=== PATIENT | female | born 2000 | race Caucasian/White ===

== ENCOUNTER 2021-09-29 15:43 | Emergency (ER) | payer OTHER, SELFPAY ==
--- NOTE | ~2021-09-29 | XR_ITS ---
EXAMINATION: XR CHEST CLINICAL INFORMATION: Right chest wall pain COMPARISON: Previous chest and left rib x-ray February 2018 TECHNIQUE: 2 views of the chest were obtained. FINDINGS: No significant abnormality is noted involving the heart, lungs, mediastinum, bony thorax or soft tissues. XR/XR chest 2V IMPRESSION: Unremarkable examination.
[2021-09-29 16:06] VITALS: BP 112/76; PULSE 71; RESP 19; TEMP 36.6; O2SAT 99; BMI 26.2
--- NOTE | 2021-09-29 16:12 | ED.PSYCH ---
HPI - Psych General Chief Complaint: Psychiatric Symptoms Stated Complaint: Anxiety attack Source: patient Mode of arrival: ambulatory Limitations: no limitations History of Present Illness HPI Narrative: 21-year-old female presents with several months of depression and suicidal ideation. She does report intermittent right chest wall pain, feels like pain occurs that she needs to get up and stretch. It is not associated with diaphoresis, shortness breath, dizziness, lightheadedness, or any other concerning symptoms. She does not report any alcohol or drug use, trauma, assault or abuse. MD complaint: suicidal ideation, feels depressed and anxiety Onset (ago): month(s) Duration: constant History of same: No Relieving factors: none Associated psychiatric symptoms: depression, suicidal ideation and racing thoughts Associated symptoms: denies other symptoms Treatments prior to arrival: none If self harm: admits thoughts of self harm Related Data Allergies Allergy/AdvReac Type Severity Reaction Status Date / Time No Known Allergies Allergy Unverified 04/11/20 16:59 Review of Systems Review of Systems: Constitutional: No Fever, No Chills ENT/Mouth: No Ear Pain, No Nasal Congestion, No sore throat Eyes: No Eye Pain, No Swelling, No Redness Cardiovascular: Positive right Chest wall Pain, No SOB Respiratory: No Cough, No Sputum, No Dyspnea Gastrointestinal: No Nausea, No Vomiting, No Diarrhea, No Hematochezia, No Melena Genitourinary: No Dysuria, No Urinary Frequency, No Hematuria Musculoskeletal: No Myalgias Skin: No Skin Lesions, No rash Neuro: No Weakness, No Numbness, No Paresthesias, No Dizziness, No Headache Psych: positive Anxiety, positive Depression, positive SI Heme/Lymph: No Lymphadenopathy Endocrine: No Polyuria, No Polydipsia Yes all other systems are reviewed and are negative FOR[facility], [facility] Past Medical History Attestation statement: The following information was validated with the patient. Source: old records reviewed Social History Social History Advance Directives: No Advance Directives Information Provided: No Patient : No Physical Exam Vital Signs: Vital Signs: Last Vital Signs Temp 98 F 09/29/21 16:06 Pulse 71 09/29/21 16:06 Resp 19 09/29/21 16:06 BP 112/76 09/29/21 16:06 Pulse Ox 99 09/29/21 16:06 BMI result Body Mass Index 26.2 Appearance: Alert. Oriented X3. Moderate emotional distress, tearful. Eyes: Pupils equal, round and reactive to light. EOMI. Sclera nonicteric. ENT: Pharynx normal. Moist mucous membranes. Neck: Normal inspection. Neck supple. CVS: Normal heart rate and rhythm. Apical pulse equal pulses to extremities. No chest wall tenderness to palpation. Respiratory: No respiratory distress. Breath sounds normal. Abdomen: Soft and nontender. Skin: Skin warm and dry. Normal skin color. Normal skin turgor. Extremities: No lower extremity edema. Gait well-balanced well coordinated. Neuro: No motor deficit. No sensory deficit. Cranial nerves 2-12 intact. Course Course Course Narrative: 21-year-old female presents with complaints of suicidal ideation and depression. Has felt this way for several months, states that she feels that she is there for everybody else but no ins there for her. She is in school at this time, does not report using alcohol or illicit drugs, occasionally smokes marijuana. Does not have a primary care physician or an established psychiatrist. She does have vague suicidal ideations but states that she feels to be depressed carry through with a plan. For medical complaints, she describes as sharp stabbing intermittent right-sided chest wall pain. Not associated with any other symptoms. Denies fevers, chills, and illness. Will order basic labs, chest x-ray, COVID testing, crisis consult and consult to Psychiatry in order for her to establish care. 20:48 care team consult complete. Patient is on school break, there is a safety plan in place, patient has outpatient referrals, she is not interested inpatient or partial programs at this time. Not a qualified patient for inpatient care at this time. Patient verbalized understanding of and agrees to plan of care discharge home. Verbalized understanding of signs and symptoms indicating need for emergent intervention MDM - Psych Differential Diagnosis Differential diagnosis: Likely suicidal ideation, depression, acute anxiety and post-traumatic stress disorder Medical Records Attestation: I reviewed the patient's medical records. Lab Data Attestation: I reviewed the patient's lab results. Result diagrams: 09/29/21 17:40 09/29/21 17:40 Labs: Lab Results 09/29/21 09/29/21 09/29/21 Range/Units 16:23 17:30 17:30 WBC (4.8-10.8) X10*3/uL RBC (4.20-5.50) X10*6/uL Hgb (12.0-16.0) g/dl Hct (37.0-47.0) % MCV (80.0-98.0) fL MCH (27.0-33.0) pg MCHC (31.0-35.0) g/dl RDW (11.0-16.0) % Plt Count (160-400) X10*3/uL MPV (9.4-12.3) fL Immature Gran % (Auto) (0.0-0.4) % Neut % (Auto) (45-73) % Lymph % (Auto) (20-40) % [place] % (Auto) (2-11) % Eos % (Auto) (0-4) % Baso % (Auto) (0-2) % Lymph # (Auto) (1.2-4.9) X10*3/uL [place] # (Auto) (0.1-1.2) X10*3/uL Eos # (Auto) (0.0-0.4) X10*3/uL Baso # (Auto) (0.0-0.2) X10*3/uL Abs Immat Gran (auto) (0.00-0.03) X10*3/uL Absolute Neuts (auto) (2.0-8.3) x10*3/uL Absolute Nucleated RBC (0.0-0.012) X10*3/uL Nucleated RBC % (auto) (0.0-0.2) /100WBC Sodium (135-145) mmol/L Potassium (3.3-5.1) mmol/L Chloride (96-108) mmol/L Carbon Dioxide (22-29) mmol/L Anion Gap (12-20) BUN (9-16) mg/dL Creatinine (0.5-1.4) mg/dL Estim Creat Clear Calc Estimated GFR Random Glucose (60-115) mg/dL Calcium (8.4-10.2) mg/dL Total Bilirubin (0.0-1.0) mg/dL AST (5-31) U/L ALT (0-31) U/L Alkaline Phosphatase (39-117) U/L Total Protein (6.5-8.0) g/dL Albumin (3.5-5.0) g/dL Urine Test NEGATIVE (NEGATIVE) Urine Opiates Screen Not Detected (Not Detect) Urine Fentanyl Screen Not Detected (Not Detect) Ur Barbiturates Screen Not Detected (Not Detect) Ur Phencyclidine Scrn Not Detected (Not Detect) Ur Amphetamines Screen Not Detected (Not Detect) U Benzodiazepines Scrn Not Detected (Not Detect) Urine Cocaine Screen Not Detected (Not Detect) U Marijuana (THC) Screen POSITIVE H (Not Detect) Ethyl Alcohol mg/dL COVID-19 (VETO) Negative (Negative) COVID-19 Clin Com See Note 09/29/21 09/29/21 09/29/21 Range/Units 17:40 17:40 17:40 WBC 9.5 (4.8-10.8) X10*3/uL RBC 5.55 H (4.20-5.50) X10*6/uL Hgb 12.1 (12.0-16.0) g/dl Hct 38.8 (37.0-47.0) % MCV 69.9 L (80.0-98.0) fL MCH 21.8 L (27.0-33.0) pg MCHC 31.2 (31.0-35.0) g/dl RDW 14.5 (11.0-16.0) % Plt Count 387 (160-400) X10*3/uL MPV 9.9 (9.4-12.3) fL Immature Gran % (Auto) 0.4 (0.0-0.4) % Neut % (Auto) 68.3 (45-73) % Lymph % (Auto) 26.8 (20-40) % [place] % (Auto) 3.7 (2-11) % Eos % (Auto) 0.6 (0-4) % Baso % (Auto) 0.2 (0-2) % Lymph # (Auto) 2.5 (1.2-4.9) X10*3/uL [place] # (Auto) 0.4 (0.1-1.2) X10*3/uL Eos # (Auto) 0.1 (0.0-0.4) X10*3/uL Baso # (Auto) 0.0 (0.0-0.2) X10*3/uL Abs Immat Gran (auto) 0.04 H (0.00-0.03) X10*3/uL Absolute Neuts (auto) 6.5 (2.0-8.3) x10*3/uL Absolute Nucleated RBC 0.000 (0.0-0.012) X10*3/uL Nucleated RBC % (auto) 0.0 (0.0-0.2) /100WBC Sodium 140 (135-145) mmol/L Potassium 4.2 (3.3-5.1) mmol/L Chloride 105 (96-108) mmol/L Carbon Dioxide 27 (22-29) mmol/L Anion Gap 12 (12-20) BUN 9 (9-16) mg/dL Creatinine 0.86 (0.5-1.4) mg/dL Estim Creat Clear Calc 84.2 Estimated GFR > 60 Random Glucose 110 (60-115) mg/dL Calcium 9.7 (8.4-10.2) mg/dL Total Bilirubin 0.5 (0.0-1.0) mg/dL AST 18 (5-31) U/L ALT 10 (0-31) U/L Alkaline Phosphatase 59 (39-117) U/L Total Protein 7.7 (6.5-8.0) g/dL Albumin 4.6 (3.5-5.0) g/dL Urine Test (NEGATIVE) Urine Opiates Screen (Not Detect) Urine Fentanyl Screen (Not Detect) Ur Barbiturates Screen (Not Detect) Ur Phencyclidine Scrn (Not Detect) Ur Amphetamines Screen (Not Detect) U Benzodiazepines Scrn (Not Detect) Urine Cocaine Screen (Not Detect) U Marijuana (THC) Screen (Not Detect) Ethyl Alcohol < 10 mg/dL COVID-19 (VETO) (Negative) COVID-19 Clin Com Imaging Data Chest x-ray: Attestation: I personally reviewed and interpreted this imaging study as follows: Radiologist's impression: EXAMINATION: XR CHEST CLINICAL INFORMATION: Right chest wall pain COMPARISON: Previous chest and left rib x-ray February 2018 TECHNIQUE: 2 views of the chest were obtained. FINDINGS: No significant abnormality is noted involving the heart, lungs, mediastinum, bony thorax or soft tissues. XR/XR chest 2V IMPRESSION: Unremarkable examination. Discharge Plan Discharge Clinical Impression: Depression, Acute anxiety Patient Disposition: Home, Self-Care Instructions: Depression (ED), Anxiety (ED) Additional Instructions: Please follow-up with outpatient psychiatry. Thank you for choosing this emergency department for evaluation. Please follow-up with primary care physician as needed. Return to the emergency department for any new, concerning, or worsening symptoms. Interventions: ED Discharge Assessment Last Done: 09/29/21 20:55 Discharge Date/Time: 09/29/21 21:01
[2021-09-29 17:25] LABS: COVID-19 Test Negative (Negative); IDNOW Serial# 16C4AD1C
[2021-09-29 17:47] LABS: MANUAL DIFF FLAG NO
[2021-09-29 17:50] LABS: Basophils Percent Auto 0.2 % (0-2); Eosinophils Absolute Auto 0.1 X10*3/uL (0.0-0.4); Eosinophils Percent Auto 0.6 % (0-4); Hematocrit 38.8 % (37.0-47.0); Hemoglobin 12.1 g/dl (12.0-16.0); Imm Gran Abs Auto 0.04 X10*3/uL (0.00-0.03); Imm Gran Pct Auto 0.4 % (0.0-0.4); Lymphocytes Absolute Auto 2.5 X10*3/uL (1.2-4.9); Lymphocytes Percent Auto 26.8 % (20-40); Mean Corpuscular HGB Conc 31.2 g/dl (31.0-35.0); Mean Corpuscular Hemoglobin 21.8 pg (27.0-33.0); Mean Corpuscular Volume 69.9 fL (80.0-98.0); Mean Platelet Volume 9.9 fL (9.4-12.3); Monocytes Absolute Auto 0.4 X10*3/uL (0.1-1.2); Monocytes Percent Auto 3.7 % (2-11); Neutrophils Absolute Auto 6.5 x10*3/uL (2.0-8.3); Neutrophils Percent Auto 68.3 % (45-73); Platelet Count 387 X10*3/uL (160-400); Red Blood Count 5.55 X10*6/uL (4.20-5.50); Red Cell Distribution Width 14.5 % (11.0-16.0); White Blood Count 9.5 X10*3/uL (4.8-10.8)
[2021-09-29 17:54] LABS: UPreg QC Valid YES; Urine Pregnancy NEGATIVE (NEGATIVE)
--- NOTE | 2021-09-29 18:04 | PC.NURSE ---
Patient referred to [facility]
[2021-09-29 18:05] LABS: Alanine Aminotransferase 10 U/L (0-31); Albumin Level 4.6 g/dL (3.5-5.0); Alkaline Phosphatase 59 U/L (39-117); Anion Gap 12 (12-20); Aspartate Amino Transferase 18 U/L (5-31); Bilirubin Total 0.5 mg/dL (0.0-1.0); Blood Urea Nitrogen 9 mg/dL (9-16); Calcium 9.7 mg/dL (8.4-10.2); Carbon Dioxide 27 mmol/L (22-29); Chloride 105 mmol/L (96-108); Creatinine Clr Calc Pharmacy 84.2; Estimated Glomerular Filt Rate > 60; Glucose Random 110 mg/dL (60-115); Potassium 4.2 mmol/L (3.3-5.1); Sodium 140 mmol/L (135-145); Total Protein 7.7 g/dL (6.5-8.0)
[2021-09-29 18:06] LABS: Amphetamine Screen Urine Not Detected (Not Detect); Barbiturates, Urine Not Detected (Not Detect); Benzodiazepines Screen Urine Not Detected (Not Detect); Cannabinoid Screen Urine POSITIVE (Not Detect); Cocaine Screen Urine Not Detected (Not Detect); Fentanyl, urine Not Detected (Not Detect); Opiate Screen Urine Not Detected (Not Detect); Phencyclidine Screen Urine Not Detected (Not Detect)
--- NOTE | 2021-09-29 18:07 | P.CNPS_ITS ---
History of Present Illness Chief Complaint: Anxiety attack Diagnostics Vital Signs (24Hr): Vital Signs - 24 hr 09/29/21 16:06 Temperature 98 F Pulse Rate 71 Respiratory Rate 19 Blood Pressure 112/76 Pulse Oximetry 99 BMI result Body Mass Index 26.2 Labs Results: 09/29/21 17:40 09/29/21 17:40 Labs: Laboratory Results - last 48 hr 09/29/21 09/29/21 09/29/21 16:23 17:30 17:30 WBC RBC Hgb Hct MCV MCH MCHC RDW Plt Count MPV Immature Gran % (Auto) Neut % (Auto) Lymph % (Auto) [place] % (Auto) Eos % (Auto) Baso % (Auto) Lymph # (Auto) [place] # (Auto) Eos # (Auto) Baso # (Auto) Abs Immat Gran (auto) Absolute Neuts (auto) Absolute Nucleated RBC Nucleated RBC % (auto) Sodium Potassium Chloride Carbon Dioxide Anion Gap BUN Creatinine Estim Creat Clear Calc Estimated GFR Random Glucose Calcium Total Bilirubin AST ALT Alkaline Phosphatase Total Protein Albumin Urine Test NEGATIVE Urine Opiates Screen Not Detected Urine Fentanyl Screen Not Detected Ur Barbiturates Screen Not Detected Ur Phencyclidine Scrn Not Detected Ur Amphetamines Screen Not Detected U Benzodiazepines Scrn Not Detected Urine Cocaine Screen Not Detected U Marijuana (THC) Screen POSITIVE H COVID-19 (VETO) Negative COVID-19 Clin Com See Note 09/29/21 09/29/21 17:40 17:40 WBC 9.5 RBC 5.55 H Hgb 12.1 Hct 38.8 MCV 69.9 L MCH 21.8 L MCHC 31.2 RDW 14.5 Plt Count 387 MPV 9.9 Immature Gran % (Auto) 0.4 Neut % (Auto) 68.3 Lymph % (Auto) 26.8 [place] % (Auto) 3.7 Eos % (Auto) 0.6 Baso % (Auto) 0.2 Lymph # (Auto) 2.5 [place] # (Auto) 0.4 Eos # (Auto) 0.1 Baso # (Auto) 0.0 Abs Immat Gran (auto) 0.04 H Absolute Neuts (auto) 6.5 Absolute Nucleated RBC 0.000 Nucleated RBC % (auto) 0.0 Sodium 140 Potassium 4.2 Chloride 105 Carbon Dioxide 27 Anion Gap 12 BUN 9 Creatinine 0.86 Estim Creat Clear Calc 84.2 Estimated GFR > 60 Random Glucose 110 Calcium 9.7 Total Bilirubin 0.5 AST 18 ALT 10 Alkaline Phosphatase 59 Total Protein 7.7 Albumin 4.6 Urine Test Urine Opiates Screen Urine Fentanyl Screen Ur Barbiturates Screen Ur Phencyclidine Scrn Ur Amphetamines Screen U Benzodiazepines Scrn Urine Cocaine Screen U Marijuana (THC) Screen COVID-19 (VETO) COVID-19 Clin Com Imaging Radiology Impressions: ITS Impressions Chest X-Ray 09/29/21 16:37 IMPRESSION: Unremarkable examination. Medications Allergies Allergies Allergy/AdvReac Type Severity Reaction Status Date / Time No Known Allergies Allergy Unverified 04/11/20 16:59 Assessment & Plan I spent minutes with the patient and/or on the patient floor today, greater than?50% of which was spent counseling/coordinating care.
[2021-09-29 18:39] LABS: Ethanol < 10 mg/dL
--- NOTE | 2021-09-29 18:54 | PC.NURSE ---
care team in with patient at this time
--- NOTE | 2021-10-01 13:35 | MHC.CARE ---
CARE Team contacts pt as a follow up to her ED visit.? Pt reports that she is doing well, reporting that she is not experiencing depression or anxiety at the moment.? Pt did not appear to want to engage CARE Team in a conversation, and did not appear to want to give details when answering questions.? Pt gave short answers, most often a single word.? Pt denies SI, HI and self-harm urges.
== END 2021-09-29 21:01 | disposition home or self-care (01) ==
PROVIDERS: Nurse Practitioner Family; Emergency Provider Emergency Medicine
DX: F32.A Depression, unspecified (principal); F41.9 Anxiety disorder, unspecified; R45.851 Suicidal ideations; Z20.822 Contact with and (suspected) exposure to COVID-19; F12.90 Cannabis use, unspecified, uncomplicated
CPT/HCPCS: 36415; 71046; 80053; 80307; 81025; 82077; 85025; 87635; 99283; 99284